=== PATIENT | male | born 1985 | race Two or more races ===

== ENCOUNTER 2022-07-17 23:46 | Inpatient (IN) | payer OTHER ==
[~2022-07-17] VITALS: Ht 180.3 cm; Wt 90.3 kg
== END 2022-07-19 18:26 | disposition home or self-care (01) | DRG 392 ==
LOC: ER 23:46 → MEDJ 07-18 12:59
PROVIDERS: ADMIT Internal Medicine; ATTEND Internal Medicine
PROC: BW40ZZZ Ultrasonography of Abdomen (ICD-10-PCS; principal; 2022-07-19)
DX: K52.89 Other specified noninfective gastroenteritis and colitis (principal); Z20.822 Contact with and (suspected) exposure to COVID-19

== ENCOUNTER 2023-08-21 22:35 | Emergency (ER) | payer OTHER ==
[~2023-08-21] VITALS: Ht 180.3 cm; Wt 88.5 kg
== END 2023-08-22 00:14 | disposition home or self-care (01) ==
LOC: ER 22:36
DX: M54.50 Low back pain, unspecified (principal)